=== PATIENT | female | born 1985 | race Two or more races ===

== ENCOUNTER → 2017-01-26 | Outpatient (REF) | payer OTHER | LOC: M SFHCWAGY 16:08 | PROVIDERS: ATTEND Nurse Practitioner Women's Health | DX: Z12.4 Encounter for screening for malignant neoplasm of cervix (principal) ==

== ENCOUNTER → 2017-04-05 | Day surgery (SDC) | payer MEDICAID, OTHER ==
[~2017-04-05] VITALS: Ht 167.6 cm; Wt 62.6 kg
[~2017-04-05] MED LIST: IBUPROFEN 600 MG TAB PO PRN; LIDOCAINE PRES-FREE 2% 10ML AMP As Ordered ONE; LR 1,000 ML IV ONE; LR 1,000 ML IV SCH; MIDAZOLAM INJ 2 MG/2 ML VIAL (J2250) As Ordered ONE; MIREIUD IU; NORCO, ANEXSIA 5/325MG TABLET (HYDROcodone/ACETAMINOPHEN) PO PRN; ONDANSETRON 4MG/2ML VIAL (J2405) As Ordered ONE; ONDANSETRON 4MG/2ML VIAL (J2405) IV PRN; PERCOCET 5MG/325MG TAB As Ordered ONE; PERCOCET 5MG/325MG TAB PO PRN; PROPOFOL 200 MG/20 ML VIAL As Ordered ONE; ROCURONIUM BROMIDE 50 MG/5 ML VIAL/SYRINGE As Ordered ONE; SUCCINYLCHOLINE 100 MG/5 ML SYRINGE (J0330) As Ordered ONE; SUGAMMADEX SODIUM 500 MG/5 ML VIAL (BRIDION) As Ordered ONE; dexameTHASONE 4 MG/ML 1ML VIAL (J1100) As Ordered ONE; fentaNYL 100 MCG/2 ML INJECTION (J3010) As Ordered ONE
[2017-04-05 11:53] LABS: MEAN CORPUSCULAR HEMOGLOBIN 29.8 pg (27.0-33.0); MEAN CORPUSCULAR HGB CONC 34.3 g/dl (32.0-36.5); MEAN CORPUSCULAR VOLUME 86.8 fl (80.0-96.0); RED CELL DISTRIBUTION WIDTH 12.6 % (11.5-14.5)
[2017-04-05 12:13] LABS: CONTROL LINE UCG INT CTR LINE PRESENT
[2017-04-05] MEDS: fentaNYL 100 MCG/2 ML INJECTION (J3010) IV PRN ×2 (13:35→13:40)
--- NOTE | 2017-04-05 14:10 | RO ---
DATE OF PROCEDURE: 04/05/2017 PREPROCEDURE DIAGNOSES: Desire for permanent sterilization and discontinuation of her intrauterine device (IUD). POSTPROCEDURE DIAGNOSES: Desire for permanent sterilization and discontinuation of her intrauterine device (IUD). PROCEDURE: Removal of the intrauterine contraceptive device and laparoscopic bilateral tubal by coagulation. SURGEON: Dr. Kyra Alvarez INSTRUMENTATION SPECIALIST: [place]. ANESTHESIA: General endotracheal anesthesia. DESCRIPTION OF PROCEDURE: Keerthi was brought to the operating room where sufficient general endotracheal anesthesia was induced. She was prepped, draped and positioned in the usual sterile fashion. The IUD was removed and the uterus sounded to 8 cm, and the intrauterine manipulatory then placed. Attention was turned to the umbilicus where a transverse incision was made just at the base of the umbilicus and sharp and blunt dissection were continued to the subcutaneous tissues to the level of the rectus fascia, which was elevated with Rochelle clamps, transversely incised and secured with a 0 Vicryl retention sutures. The peritoneum was entered under direct visualization and the Lovett cannula was placed into the peritoneal cavity under direct visualization in an open laparoscopic technique. CO2 insufflation was then begun. After adequate CO2 insufflation, the peritoneal cavity was visualized. There was no excrescence, ascites nor exudate and the uterus itself was normal in appearance. A little bit of Trendelenburg was helpful in visualization. We then visualized the fallopian tubes to the fimbriated end, confirmed the anatomy and used the bipolar cautery first on the patient's right side, then on the left to coagulate the tubes in four separate locations on each tube using the bipolar cautery. After the coagulation of the tubes had been completed. Pictures were taken to document the work and the procedure was then ended with the CO2 allowed to escape the abdomen and the 0 Vicryl retention sutures used to close the fascial wound at the umbilicus and the skin then closed in a subcuticular stitch of #3-0 Vicryl with good approximation and hemostasis at both layers. A dry sterile dressing was then applied and of course the uterine manipulatory removed. Estimated blood loss for the procedure is about 3 mL. Fluid replacement was Crystalloid. Complications: None. CONDITION AND DISPOSITION. Keerthi tolerated the procedure well and was recovering in the recovery room in good condition.
[2017-04-05 14:40] VITALS: BP 98/56
== END | disposition home or self-care (01) ==
LOC: M SDC 11:07
PROVIDERS: ATTEND Obstetrics & Gynecology
DX: Z30.2 Encounter for sterilization (principal); Z30.432 Encounter for removal of intrauterine contraceptive device; D64.9 Anemia, unspecified
CPT/HCPCS: 36415; 58301; 58670; 84703; 85027; J0330; J1100; J2250; J2405; J3010